=== PATIENT | female | born 1970 | race Asian ===

== ENCOUNTER 2019-05-29 12:53 | Emergency (ER) | payer SELFPAY ==
[2019-05-29 14:41] LABS: BASOPHILS % (AUTO) 0.1 %; LYMPHOCYTES % (AUTO) 12.9 %; MEAN CORPUSCULAR HEMOGLOBIN 29.3 pg (27.0-31.0); MEAN CORPUSCULAR HGB CONC 34.2 g/dL (32.0-36.0); MEAN CORPUSCULAR VOLUME 85.8 fL (81.0-99.0); MEAN PLATELET VOLUME 9.3 fL (7.9-10.8); MONOCYTES # (AUTO) 0.4 10^3/uL (0.0-1.0); MONOCYTES % (AUTO) 5.4 %; NEUTROPHILS # (AUTO) 6.2 10^3/uL (1.5-6.6); NEUTROPHILS % (AUTO) 81.3 %; PLT - PLATELET COUNT 301 10^3/uL (130-450); RED BLOOD COUNT 4.43 10^6/uL (4.20-5.40); RED CELL DISTRIBUTION WIDTH 12.6 % (12.0-15.0); WHITE BLOOD COUNT 7.6 x10^3/uL (4.8-10.8)
[2019-05-29 14:53] LABS: ALBUMIN 3.8 g/dL (3.2-5.5); BILIRUBIN,TOTAL 0.7 mg/dL (0.2-1.0); CALCIUM 9.4 mg/dL (8.5-10.3); CREATININE 0.7 mg/dL (0.4-1.0); TOTAL PROTEIN 7.8 g/dL (6.7-8.2)
--- NOTE | 2019-05-29 15:03 | ED Physician Documentation ---
PD HPI DYSPNEA - Stated complaint Stated Complaint: DIZZY, COLD SWEATS - Chief complaint Chief Complaint: Cardiac - History obtained from History obtained from: Patient - History of Present Illness Timing - onset: Other (She stayed out late at the [facility] last night. She only got about 2 hours of sleep and then went to work. She started feel lightheaded at work. There is no associated chest pain or trouble breathing but she does note a minimally productive cough for the last 3 weeks. She feels better now. There is no associated chest pain or neurologic symptoms.) Review of Systems Constitutional: denies: Fever, Chills Nose: denies: Rhinorrhea / runny nose, Congestion Throat: denies: Sore throat Cardiac: denies: Chest pain / pressure, Palpitations Respiratory: reports: Cough. denies: Dyspnea PD PAST MEDICAL HISTORY - Present Medications Home Medications: Ambulatory Orders Medication Instructions Recorded Confirmed guaiFENesin/CODEINE [Robitussin AC] 5 - 10 ml PO Q6H PRN #120 ml 05/29/19 - Allergies Allergies/Adverse Reactions: Allergies Allergy/AdvReac Type Severity Reaction Status Date / Time aspirin Allergy Unknown Verified 05/29/19 13:01 Penicillins Allergy Unknown Verified 05/29/19 13:01 PD ED PE NORMAL - Vitals Vital signs reviewed: Yes - General General: Alert and oriented X 3, No acute distress - HEENT HEENT: PERRL, EOMI - Neck Neck: Supple, no meningeal sign, No bony TTP - Cardiac Cardiac: RRR, No murmur - Respiratory Respiratory: No respiratory distress, Clear bilaterally - Abdomen Abdomen: Non tender - Back Back: No CVA TTP, No spinal TTP - Derm Derm: Normal color, Warm and dry - Extremities Extremities: No edema, No calf tenderness / cord - Neuro Neuro: Alert and oriented X 3, Normal speech Results - Vitals Vitals: Vital Signs - 24 hr 05/29/19 05/29/19 05/29/19 13:01 15:34 17:14 Temperature 36.5 C 36.6 C Heart Rate 108 H 96 88 Respiratory 16 18 18 Rate Blood Pressure 124/55 L 128/72 135/77 H O2 Saturation 98 96 100 Oxygen O2 Source Room air - EKG (time done) 1309 Rate: Rate (enter#) (103) Rhythm: Sinus tachycardia [place]: Normal Intervals: Normal DC QRS: Normal Ischemia: Non specific changes. No: ST elevation c/w ischemia, ST depression Computer interpretation: Agree with computer - Labs Labs: Laboratory Tests 05/29/19 05/29/19 05/29/19 14:33 14:33 14:33 WBC 7.6 RBC 4.43 Hgb 13.0 Hct 38.0 MCV 85.8 MCH 29.3 MCHC 34.2 RDW 12.6 Plt Count 301 MPV 9.3 Neut # (Auto) 6.2 Lymph # (Auto) 1.0 L Rush # (Auto) 0.4 Eos # (Auto) 0.0 Baso # (Auto) 0.0 Absolute Nucleated RBC 0.00 Nucleated RBC % 0.0 Sodium 138 Potassium 3.2 L Chloride 99 L Carbon Dioxide 27 Anion Gap 12.0 BUN 12 Creatinine 0.7 Estimated GFR (MDRD) 89 Glucose 134 H Calcium 9.4 Total Bilirubin 0.7 AST 23 ALT 23 Alkaline Phosphatase 93 Troponin I High Sens 15.2 H* Total Protein 7.8 Albumin 3.8 Globulin 4.0 Albumin/Globulin Ratio 1.0 Lipase 28 Urine Color Urine Clarity Urine pH Ur Specific [place] Urine Protein Urine Glucose (UA) Urine Ketones Urine Occult Blood Urine Nitrite Urine Bilirubin Urine Urobilinogen Ur Leukocyte Esterase Urine RBC Urine WBC Ur Squamous Epith Cells Urine Bacteria Urine Casts Ur Microscopic Review Urine Culture Comments 05/29/19 05/29/19 16:15 16:32 WBC RBC Hgb Hct MCV MCH MCHC RDW Plt Count MPV Neut # (Auto) Lymph # (Auto) Rush # (Auto) Eos # (Auto) Baso # (Auto) Absolute Nucleated RBC Nucleated RBC % Sodium Potassium Chloride Carbon Dioxide Anion Gap BUN Creatinine Estimated GFR (MDRD) Glucose Calcium Total Bilirubin AST ALT Alkaline Phosphatase Troponin I High Sens 19.6 H* Total Protein Albumin Globulin Albumin/Globulin Ratio Lipase Urine Color YELLOW Urine Clarity CLEAR Urine pH 7.0 Ur Specific [place] 1.015 Urine Protein TRACE Urine Glucose (UA) NEGATIVE Urine Ketones NEGATIVE Urine Occult Blood MODERATE H Urine Nitrite NEGATIVE Urine Bilirubin NEGATIVE Urine Urobilinogen 1 (NORMAL) Ur Leukocyte Esterase NEGATIVE Urine RBC 11-25 H Urine WBC 4-5 Ur Squamous Epith Cells MANY Squamous H Urine Bacteria Few Urine Casts 6-10 Hyaline Casts Ur Microscopic Review INDICATED Urine Culture Comments NOT INDICATED PD MEDICAL DECISION MAKING - ED course ED course: 49-year-old woman with a dizzy episode at work today, probably well explained by [place]. That said, her troponin is just very mildly elevated. We will check it again in 2 hours to make sure there is no delta change. High sensitivity went up 4 points in 2 hours which is not considered a signific ant change. Feeling normal, never any CP. Departure - Departure Disposition: 01 Home, Self Care Clinical Impression: Dizziness Condition: Good Record reviewed to determine appropriate education?: Yes Instructions: ED Dizziness UKO, ED Smoking Cessation Follow-Up: Ivon Patel MD [Provider Admit Priv/Credential] - [facility] [Provider Group] Prescriptions: guaiFENesin/CODEINE [Robitussin AC] 5 - 10 ml PO Q6H PRN #120 ml PRN Reason: Cough Comments: Drink plenty of fluids, return if worse. Try to quit smoking. Follow-up with your doctor. Blood sugar was mildly elevated, needs to be checked again in 6 months to year. It is imperative to follow-up with a primary care physician. You need a stress test within the week. Take a baby aspirin a day. Discharge Date/Time: 05/29/19 17:15
[2019-05-29 16:50] LABS: BILIRUBIN,URINE NEGATIVE (NEGATIVE); GLUCOSE, URINE (UA) NEGATIVE (NEGATIVE); KETONES,URINE (UA) NEGATIVE (NEGATIVE); LEUKOCYTE ESTERASE, URINE NEGATIVE (NEGATIVE); NITRITE,URINE NEGATIVE (NEGATIVE); OCCULT BLOOD,URINE MODERATE (NEGATIVE); PROTEIN,URINE TRACE mg/dL (NEGATIVE); UROBILINOGEN,URINE 1 (NORMAL) E.U./dL (NORMAL)
[2019-05-29 16:53] LABS: CLARITY,URINE CLEAR (CLEAR)
[2019-05-29 17:10] LABS: BACTERIA,URINE Few /HPF (None Seen); SQUAMOUS EPITHELIAL CELL,UR MANY Squamous (<= Few)
[2019-05-29 17:15] VITALS: BP 135/77
== END 2019-05-29 17:15 | disposition home or self-care (01) ==
LOC: ED 12:53
DX: R42 Dizziness and giddiness (principal); R74.8 Abnormal levels of other serum enzymes; R00.0 Tachycardia, unspecified
CPT/HCPCS: 36415; 80053; 81001; 81003; 83690; 84484; 85025; 87086; 93005; 99283

== ENCOUNTER 2019-06-03 07:35 | Outpatient (CLI) | payer SELFPAY | END 2019-06-03 07:36 | disposition EMS.NT | LOC: EMS 07:35 | PROVIDERS: ATTEND Surgery | DX: M54.5 Low back pain (principal); V48.5XXA Car driver injured in noncollision transport accident in traffic accident, initial encounter; Y92.414 Local residential or business street as the place of occurrence of the external cause ==